=== PATIENT | male | born 1960 | race Caucasian/White ===

== ENCOUNTER 2017-06-17 12:14 | Emergency (ER) | payer SELFPAY ==
[~2017-06-17] VITALS: Ht 175.3 cm; Wt 75.0 kg
[2017-06-17] MEDS: ACETAMINOPHEN 325MG TABLET PO ONE (13:45)
[2017-06-17 14:17] LABS: HEMATOCRIT. 35.8 % (42.0-52.0); HEMOGLOBIN. 12.6 g/dL (14.0-18.0); MEAN CORPUSCULAR HEMOGLOBIN 34.3 pg (28.0-32.0); MEAN CORPUSCULAR VOLUME 97.3 fL (80.0-94.0); MEAN PLATELET VOLUME 7.4 fl (7.4-10.4); PLATELET 257 x1000/uL (130-400); RED BLOOD CELL COUNT 3.68 mill/uL (4.7-6.1); RED CELL DISTRIBUTION WIDTH 14.8 % (11.6-14.6)
[2017-06-17 14:32] LABS: CARBON DIOXIDE 29 mEq/L (21-32); CHLORIDE 101 mEq/L (98-107); ETHANOL BLOOD < 10 mg/dL
[2017-06-17 15:43] LABS: PLATELET ESTIMATE NORMAL
[2017-06-17 17:06] VITALS: BP 140/63
== END 2017-06-17 17:10 | disposition home or self-care (01) ==
LOC: ER 12:24
DX: S09.90XA Unspecified injury of head, initial encounter (principal); G31.89 Other specified degenerative diseases of nervous system; F10.129 Alcohol abuse with intoxication, unspecified; M47.892 Other spondylosis, cervical region; W19.XXXA Unspecified fall, initial encounter; Y93.9 Activity, unspecified; Y92.89 Other specified places as the place of occurrence of the external cause
CPT/HCPCS: 36415; 70450; 72125; 80048; 85025; 99285; G0482